=== PATIENT | female | born 1975 | race Caucasian/White ===

== ENCOUNTER 2021-05-17 13:16 | Emergency (ER) | payer SELFPAY ==
[2021-05-17] MEDS ORDERED: ONDANSETRON 4 MG (ODT) TAB ONE (13:48)
--- NOTE | 2021-05-17 15:03 | RAD REPORT ---
EXAM DESCRIPTION: RAD - Foot Right 3 View - 05/17/2021 2:42 pm CLINICAL HISTORY: Right foot pain FINDINGS: No fracture or dislocation is seen No bone or joint abnormality noted
--- NOTE | 2021-05-17 15:28 | EDPHYS ---
Physician Documentation [facility] Name: Radha Schroeder Age: 46 yrs Sex: Female : 1975 Arrival Date: 05/17/2021 Time: 13:17 Bed 9 Private MD: ED Physician Deni Lindo HPI: 05/17 14:00 This 46 yrs old Female presents to ER via Wheelchair with complaints of Foot Injury, cp Nausea. 14:00 The patient presents with an injury. The complaints affect the dorsum of right foot. cp 14:00 Context: while walking up stairs, step collapsed under weight causing foot to break cp through step. Onset: The symptoms/episode began/occurred last night. 14:00 Associated signs and symptoms: Pertinent positives: numbness of toes, Pertinent cp negatives calf tenderness, ankle pain. 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 - Social history:: Smoking status: Patient denies any tobacco usage or history of. ROS: 14:05 MS/extremity: Positive for pain, of the right foot, Negative for paresthesias. cp 14:05 Constitutional: Negative for body aches, chills. cp 14:05 Neck: Negative for pain with movement, pain at rest. 14:05 Cardiovascular: Negative for chest pain. 14:05 Respiratory: Negative for cough, shortness of breath, wheezing. 14:05 Abdomen/GI: Negative for abdominal pain, nausea, vomiting, and diarrhea. 14:05 Back: Negative for pain at rest, pain with movement. 14:05 Neuro: Positive for numbness, of the right toes. 14:05 All other systems are negative. Exam: 14:10 Constitutional: The patient appears in no acute distress, alert, awake, non-toxic, well cp developed, well nourished, uncomfortable. 14:10 Head/Face: Normocephalic, atraumatic. cp 14:10 Chest/axilla: Inspection: normal. 14:10 Cardiovascular: Rate: tachycardic. 14:10 Respiratory: the patient does not display signs of respiratory distress, Respirations: normal, no use of accessory muscles, no retractions, labored breathing, is not present. 14:10 Back: pain, is absent. 14:10 Musculoskeletal/extremity: Extremities: grossly normal except: noted in the dorsum of right distal foot: ecchymosis, pain, swelling, tenderness, Pulses: noted to be 2+ in the right dorsalis pedis artery, the right toes numbness. 14:10 Skin: cellulitis, is not appreciated, no rash present. Vital Signs: 13:39 BP 122 / 86; Pulse 101; Resp 18; Temp 99.0; Pulse Ox 99% on R/A; Weight 90.72 kg; ph Height 5 ft. 8 in. (172.72 cm); 13:39 Body Mass Index 30.41 (90.72 kg, 172.72 cm) ph Procedures: 16:00 Splinting: Splint applied to right foot using Orthoglass splint, posterior short leg. cp applied by tech. Examined by me, post splint application: neurovascular intact, Patient tolerated well. MDM: 14:00 Differential diagnosis: dislocation, contusion, fracture, sprain. cp 15:26 Data reviewed: vital signs, nurses notes, radiologic studies, plain films. cp 15:26 Test interpretation: by ED physician or midlevel provider: plain radiologic studies. cp Counseling: I had a detailed discussion with the patient and/or guardian regarding: the historical points, exam findings, and any diagnostic results supporting the discharge/admit diagnosis, radiology results, to return to the emergency department if symptoms worsen or persist or if there are any questions or concerns that arise at home. Response to treatment: the patient's symptoms have mildly improved after treatment, and as a result, I will discharge patient. 15:27 Patient medically screened. cp 05/17 13:42 Order name: XRAY Foot RIGHT 3 View; Complete Time: 15:16 ph 05/17 15:25 Order name: Splint - Posterior Leg: short leg; Complete Time: 16:01 cp Administered Medications: 13:47 Drug: Zofran (Ondansetron) 4 mg Route: PO; ph 14:00 Follow up: Response: No adverse reaction iw 15:34 Drug: Hydrocodone-Acetaminophen (7.5 mg-325 mg) 1 tabs Route: PO; iw 15:45 Follow up: Response: No adverse reaction; Pain is increased iw 15:34 Drug: Ibuprofen 800 mg Route: PO; iw 15:45 Follow up: Response: No adverse reaction iw Disposition Summary: 05/17/21 15:27 Discharge Ordered Location: Home cp Problem: new cp Symptoms: have improved cp Condition: Stable cp Diagnosis - Other sprain of right foot cp Followup: cp - With: Vitaliy Javed MD - When: 1 week - Reason: Recheck today's complaints Discharge Instructions: - Discharge Summary Sheet cp - Form - Excuse from Work, School, or Physical Activity cp - Foot Pain cp Forms: - Medication Reconciliation Form cp - Thank You Letter cp - Antibiotic Education cp - Prescription Opioid Use cp Prescriptions: - Ibuprofen 800 mg Oral Tablet - take 1 tablet by ORAL route every 8 hours As needed take with food; 30 tablet; cp Refills: 0, Product Selection Permitted - Tramadol 50 mg Oral Tablet - take 1 tablet by ORAL route every 8 hours as needed; 12 tablet; Refills: 0, cp Product Selection Permitted Signatures: Dispatcher [employer] Janneth Rizo RN RN iw Claire Guardado RN RN ph Kartik Zepeda, MARICARMEN PA cp Corrections: (The following items were deleted from the chart) 15:28 15:27 Pain in right foot cp cp
--- NOTE | 2021-05-17 15:28 | ER ---
Nurse's Notes [facility] Name: Radha Schroeder Age: 46 yrs Sex: Female : 1975 Arrival Date: 05/17/2021 Time: 13:17 Bed 9 Private MD: Diagnosis: Other sprain of right foot Presentation: 05/17 13:36 Chief complaint: Patient states: Was walking up wooden stairs and one broke, R foot ph went through stair, bruising and swelling noted, denies other injury, happened last night, denies other injuries. Coronavirus screen: Vaccine status: Patient reports receiving the 2nd dose of the covid vaccine. Ebola Screen: No symptoms or risks identified at this time. Initial Sepsis Screen: Does the patient meet any 2 criteria? No. Patient's initial sepsis screen is negative. Does the patient have a suspected source of infection? No. Patient's initial sepsis screen is negative. Risk Assessment: Do you want to hurt yourself or someone else? Patient reports no desire to harm self or others. Onset of symptoms was May 17, 2021. 13:36 Method Of Arrival: Wheelchair ph 13:36 Acuity: LAURYN 4 ph Triage Assessment: 13:47 General: Appears in no apparent distress. uncomfortable, Behavior is calm, cooperative, ph appropriate for age. Pain: Complains of pain in dorsum of right foot. Neuro: Level of Consciousness is awake, alert, obeys commands, Oriented to person, place, time, situation. Cardiovascular: Capillary refill < 3 seconds in bilateral fingers Patient's skin is warm and dry. Respiratory: Airway is patent Respiratory effort is even, unlabored. Derm: Skin is intact, Skin is pink, warm \T\ dry. Bruising that is dark purple, on dorsum of right foot. Musculoskeletal: Circulation, motion, and sensation intact. Swelling present in right foot. [employer] DEAN: 13:39 LMP 04/22/2021 ph Historical: - Allergies: 13:38 No Known Allergies; ph - Home Meds: 13:38 Prozac Oral [Active]; ph - PSHx: 13:38 urethral sx; tummy tuck; ph - Immunization history:: Adult Immunizations unknown. - Social history:: Smoking status: Patient denies any tobacco usage or history of. Screenin:48 Abuse screen: Denies threats or abuse. Denies injuries from another. Nutritional ph screening: No deficits noted. Tuberculosis screening: No symptoms or risk factors identified. Fall Risk None identified. Assessment: 13:47 General: Appears. ph Vital Signs: 13:39 BP 122 / 86; Pulse 101; Resp 18; Temp 99.0; Pulse Ox 99% on R/A; Weight 90.72 kg; ph Height 5 ft. 8 in. (172.72 cm); 13:39 Body Mass Index 30.41 (90.72 kg, 172.72 cm) ph ED Course: 13:17 Patient arrived in ED. mr 13:28 Kartik Zepeda PA is PHCP. cp 13:29 Deni Lindo MD is Attending Physician. cp 13:38 Triage completed. ph 13:48 Arm band placed on Patient placed in waiting room, Patient notified of wait time. X-ray ph ordered. 13:48 Patient has correct armband on for positive identification. ph 14:44 XRAY Foot RIGHT 3 View In Process Unspecified. EDAK 15:09 Janneth Contreras, DONNA is Primary Nurse. iw 15:26 Vitaliy Javed MD is Referral Physician. cp 16:01 Orthoglass splint: Posterior short lleg splint applied on right leg. [facility] 16:26 No provider procedures requiring assistance completed. Patient did not have IV access iw during this emergency room visit. Administered Medications: 13:47 Drug: Zofran (Ondansetron) 4 mg Route: PO; ph 14:00 Follow up: Response: No adverse reaction iw 15:34 Drug: Hydrocodone-Acetaminophen (7.5 mg-325 mg) 1 tabs Route: PO; iw 15:45 Follow up: Response: No adverse reaction; Pain is increased iw 15:34 Drug: Ibuprofen 800 mg Route: PO; iw 15:45 Follow up: Response: No adverse reaction iw Outcome: 15:27 Discharge ordered by MD. cp 16:26 Discharged to home via wheelchair, with family. iw 16:26 Condition: good 16:26 Discharge instructions given to patient, Instructed on discharge instructions, follow up and referral plans. Demonstrated understanding of instructions, follow-up care. 16:27 Patient left the ED. iw Signatures: Dispatcher [employer] [facility] Perla Mejía mr Janneth Contreras, DONNA RN iw Claire Guardado RN RN ph Kartik Zepeda PA PA cp [place], [place] [id number]
[2021-05-17] MEDS ORDERED: IBUPROFEN 400 MG TAB ONE (15:34)
[2021-05-17] MEDS ORDERED: HYDROCODONE/APAP 7.5/325 MG TAB ONE (15:35)
[2021-05-17 16:33] VITALS: BP 122/86; TEMP 99; O2SAT 99
== END 2021-05-17 16:27 | disposition home or self-care (01) ==
LOC: ER 13:16
PROC: 2W3QX1Z Immobilization of Right Lower Leg using Splint (ICD-10-PCS; principal; 2021-05-17)
DX: S93.691A Other sprain of right foot, initial encounter (principal)
CPT/HCPCS: 99283